=== PATIENT | male | born 1975 | race Caucasian/White ===

== ENCOUNTER → 2018-12-12 13:36 | Outpatient (CLI) | payer OTHER, SELFPAY ==
--- NOTE | 2018-12-12 13:53 | VDLE_ITS ---
Reason For Study: PAIN RIGHT LEFT CFV is compressible, spontaneous, phasic, CFV is compressible, spontaneous, phasic, competent and demonstrates normal competent, and demonstrates normal augmentation. augmentation. Procedure Left SFJ is compressible. Left SFV is dilated Exam performed in department. and partially NONCOMPRESSIBLE, A preliminary report was called and/or faxed Left POP V is dilated and NONCOMPRESSIBLE. to ED. Left T/P TRUNK is dilated and NONCOMPRESSIBLE. Left Gastroc V, Soleus V and SSV are dilated and NONCOMPRESSIBLE. Left PTV and YOUSUF V is dilated and NONCOMPRESSIBLE. Left GSV is compressible. Interpretation Summary Acute deep vein thrombosis is noted in the left femoral vein. Acute deep vein thrombosis is noted in the left popliteal vein. Acute deep vein thrombosis is noted in the left tibio-peroneal trunk. Acute deep vein thrombosis is noted in the left posterior tibial vein. Acute deep vein thrombosis is noted in the left peroneal vein. Acute deep vein thrombosis is noted in the left gastrocnemius vein. Acute deep vein thrombosis is noted in the left soleus vein. The left common femoral vein is patent, compressible, and competent. The left great saphenous vein is patent and compressible. Acute superficial thrombophlebitis is noted in the left small saphenous vein. Ordering Physician: Adina Li Referring Physician: Adina Li Performed By: Lisset Scott, JOSELO, RVT
== END ==
PROVIDERS: Family Provider Family Medicine; PCP Family Medicine; Referring Provider Nurse Practitioner Family; Visit Provider Nurse Practitioner Family
DX: M79.662 Pain in left lower leg (principal)
CPT/HCPCS: 93971

== ENCOUNTER 2018-12-12 15:06 | Emergency (ER) | payer OTHER, SELFPAY ==
[2018-12-12 15:08] VITALS: BP 139/74; PULSE 78; PULSE 79; RESP 18; TEMP 36.8; O2SAT 96; BMI 27.9
--- NOTE | 2018-12-12 15:48 | ED.VISSUMM ---
- ER Visit Summary Date of Service: 12/12/18 Chief Complaint: Left leg DVT History of Present Illness: The patient is a 43 M presenting with left lower extremity DVT found on outpatient ultrasound. Patient states he has been having pain in his left leg for the past 5 weeks. He states he looked on the Internet 2 weeks ago and believed that he had a blood clot. He was able to see his doctor today and was sent for outpatient venous doppler. He denies chest pain or shortness of breath. Denies lightheadedness or syncope. Denies palpitations. Denies recent injury. He denies recent travel or surgeries. No family history or personal history of DVTs that he is aware of. No history of cancer. He states he has also had a cough for several weeks. Denies other complaints. Physical Examination: Vitals are stable. Patient is afebrile. Alert no acute distress. HEENT exam is unremarkable. Neck is supple. Lungs are clear and equal bilaterally. Heart is regular rate and rhythm. Abdomen is soft nontender nondistended. Extremities left calf tenderness. Normal DP/PT pulses. Skin is warm and dry. No focal neurologic deficit. Remainder of exam is unremarkable. Emergency Department Course and Treatment: Outpatient ultrasound shows left SFV dilated and partially noncompressible, left popliteal vein is dilated and noncompressible, left T/P trunk is dilated and noncompressible. left gastroc vein, soleus vein and SFV are dilated and noncompressible. left PTV and YOUSUF V is dilated and noncompressible. Left GSV is compressible. Patient is not tachycardic or hypoxic. He denies chest pain, pleuritic chest pain, shortness of breath. Denies lightheadedness or syncope. He will be started on anticoagulants. He was offered chest x-ray for his cough and declines. His lungs are clear to auscultation bilaterally. BMP unremarkable. Patient was started on Eliquis. Advised to follow-up with primary care physician. Advised return to ED for any worsening complaints. Disposition: Discharge home Impression: Left lower extremity DVT This note was generated with [employer] dictation software. It may contain incorrect words, spelling, and punctuation that were not noted in review of the chart prior to signing ED Disposition - Plan for ED Patient: Instructions: ED DVT Prescriptions: Apixaban [Eliquis] 5 mg PO BID #74 tablet Referrals: Verito Barth [Primary Care Provider] -
[2018-12-12 16:16] LABS: Anion Gap 8 (5-15); BUN 14 mg/dL (7-18); BUN/Creat Ratio 12.7 RATIO (10-20); Calcium,Total 8.6 mg/dL (8.5-10.1); Chloride 107 mmol/L (98-107); EST Glomerular Filtration Rate 77 mL/min (>60); Est Glom Filt Rate - Afr Amer 93 mL/min (>60); Estimated Creatinine Clearance 90.32 ml/min; Glucose 111 mg/dL (74-106); Sodium Level 142 mmol/L (136-145)
--- NOTE | 2018-12-12 16:32 | ED.DEP ---
ED Disposition - Plan for ED Patient: Instructions: ED DVT Prescriptions: Apixaban [Eliquis] 5 mg PO BID #74 tablet Referrals: Mel Fierro,Verito Barreto [Primary Care Provider] -
[2018-12-12] MEDS: APIXABAN 5 MG TABLET 10 MG PO (17:00)
[2018-12-12 17:32] VITALS: RESP 18; O2SAT 99
== END 2018-12-12 17:33 | disposition home or self-care (01) ==
LOC: ED 15:44
PROVIDERS: Emergency Provider Emergency Medicine; Family Provider Family Medicine
DX: I82.402 Acute embolism and thrombosis of unspecified deep veins of left lower extremity (principal); R05 Cough
CPT/HCPCS: 80048; 99283; A4216

== ENCOUNTER → 2019-01-25 11:16 | Outpatient (CLI) | payer OTHER, SELFPAY ==
--- NOTE | 2019-01-25 11:41 | VDLE_ITS ---
Reason For Study: LLE pain RIGHT LEFT CFV is compressible, spontaneous, phasic, GSV is normal. competent and demonstrates normal CFV is compressible, spontaneous, phasic, augmentation. competent, and demonstrates normal Procedure augmentation. Exam performed in department. MID/DISTAL FV, POP V, T/P Trunk, The exam was diagnostic. gastrocnemius V are dilated and A preliminary report was called and/or faxed noncompressible. to Verito Holguin @ 12:15 pm. PTV and PERV are now partially compressible. Interpretation Summary Acute deep vein thrombosis is noted in the left femoral vein. Acute deep vein thrombosis is noted in the left popliteal vein. Acute deep vein thrombosis is noted in the left tibio-peroneal trunk. Acute deep vein thrombosis is noted in the left gastrocnemius vein. Since a prior study on 12/12/2018, mild improvement is noted in the left posterior tibial vein and peroneal vein, which are now partially compressible. The left common femoral vein remains patent, compressible, and competent. The left greater saphenous vein appears patent and compressible segmentally. Ordering Physician: VERITO HOLGUIN Referring Physician: VERITO HOLGUIN FREE Performed By: Farnaz Streeter, JOSELO, RVT
== END ==
PROVIDERS: Family Provider Family Medicine; PCP Family Medicine
DX: M79.662 Pain in left lower leg (principal)
CPT/HCPCS: 93971

== ENCOUNTER → 2019-08-13 13:46 | Outpatient (CLI) | payer OTHER, SELFPAY ==
[2019-03-12 15:28] VITALS: BMI 27.5
--- NOTE | 2019-08-13 14:19 | VDLE_ITS ---
Reason For Study: pain RIGHT LEFT CFV is compressible, spontaneous, phasic, GSV is normal. competent and demonstrates normal CFV is compressible, spontaneous, phasic, augmentation. competent, and demonstrates normal Procedure augmentation. Exam performed in department. PTV is compressible. The exam was diagnostic. LT PerV is compressible. A preliminary report was called and/or faxed FV, POP V, T/P Trunk, and Gastroc V are to [facility]ito [facility]. partially compressible with bright intraluminal echoes consistent with chronic DVT. Interpretation Summary Chronic venous changes are noted in the left femoral vein, popliteal vein, tibio-peroneal trunk, and gastrocnemius vein, which are partially compressible and demonstrate bright intraluminal echogenicity. The left common femoral vein, posterior tibial vein, and peroneal vein are patent and compressible. The left common femoral vein is competent. The left great saphenous vein appears patent and compressible segmentally. Ordering Physician: Verito Barth Performed By: Harjit Leyva RVT
== END ==
DX: M79.662 Pain in left lower leg (principal)
CPT/HCPCS: 93971

== ENCOUNTER → 2019-10-08 13:56 | Outpatient (CLI) | payer OTHER, SELFPAY ==
[2019-09-11 15:19] VITALS: BMI 28.5
[2019-10-08 11:56] VITALS: BMI 29.3
--- NOTE | 2019-10-08 13:59 | VDLE_ITS ---
Reason For Study: Pain Procedure LEFT Exam performed in department. GSV is normal. A preliminary report was called and/or faxed CFV is compressible, spontaneous, phasic, to Fred. Pt sent back to office. competent, and demonstrates normal augmentation. FV and Gastroc V are partially compressible with bright intraluminal echoes consistent with chronic DVT. PopV and T/P Trunk are partially compressible with minimal flow noted. Acute deep vein thrombosis is noted in the left soleus vein. Acute deep vein thrombosis is noted in the left peroneal vein. Acute deep vein thrombosis is noted in the left posterior tibial vein. Interpretation Summary Left great saphenous vein appears patent and compressible segmentally. Acute deep venous thrombosis left popliteal and tibioperoneal trunk and soleus and peroneal and posterior tibial veins. Bright intraluminal echoes consistent with chronic deep venous thrombosis involving the left femoral vein and gastrocnemius vein. Compared to a previous study of August 13, 2019 chronic deep venous thrombosis was identified at that time Ordering Physician: Kellee Ibarra Referring Physician: Adina Restrepo Performed By: Danni Fletcher RVT
== END ==
PROVIDERS: Family Provider Nurse Practitioner Family; PCP Nurse Practitioner Family; Referring Provider Nurse Practitioner Family; Visit Provider Nurse Practitioner Family
DX: M79.605 Pain in left leg (principal)
CPT/HCPCS: 93971

== ENCOUNTER 2019-11-08 18:14 | Emergency (ER) | payer OTHER, SELFPAY ==
[2019-10-08 11:56] VITALS: BMI 29.3
[2019-11-08 18:15] VITALS: BP 127/68; PULSE 86; RESP 16; TEMP 36.3; O2SAT 96; BMI 28.7
--- NOTE | 2019-11-08 18:31 | ED.VIS.GEN ---
History of Present Illness Chief Complaint: Other, Pain/Inj Detail of Chief Complaint: Injury to groin and blood in stool Informant: Patient Onset: Yesterday - Patient noted blood in stool yesterday. He states he did not note any blood today., Days - Patient fell on Monday resulting in abrasion and injury to the right inguinal area. He was seen the following day by his vascular surgeon. Context: Sudden Onset Timing: Intermittent Quality: Blood per rectum and wound right inguinal area Location: Previously documented Current Severity: Mild Maximum Severity: Mild Worsened by: Nothing Relieved by: Nothing Associated Symptoms: No fever or chills or drainage and no orthostatic symptoms Narrative: Patient is a 44-year-old male who was diagnosed December 2018 with DVT. He is on Eliquis. He had a fall on Monday. He sustained an abrasion medial proximal right thigh and laceration in the right inguinal area near his scrotum. He is concerned because it is not closing. He has not noted drainage. He does report bruise and tenderness medial anterior proximal right thigh. The area of abrasion is not warm, indurated and there is no inguinal lymphadenopathy. The laceration is less than 1 cm. There is no erythema, warmth, induration or fluctuance. Unable to express any material from the laceration. Patient states he noted blood yesterday per rectum. He denies nausea or vomiting. He denies black or maroon stool. There is no history of diverticulosis or inflammatory bowel disorder. He denies hemorrhoids. Prior similar symptoms: No Recent Illness/Hospitalization: No - Past Medical History (1) Deep vein thrombosis (DVT) of proximal vein of left lower extremity Status: Chronic Past Medical History - Allergies and Home Meds Allergies/Adverse Reactions: Allergies No Known Allergies Allergy (Verified 11/08/19 18:41) Primary Care Physician: Adina Restrpeo NP-C [Primary Care Provider] - Prior records reviewed: Yes Lives: Alone Smoking Status: Never smoker Alcohol: None Drugs: None Review of Systems General: Denies: Chills, Fever, Malaise, Sweats Respiratory: Denies: Dyspnea, Cough, Sputum Gastrointestinal: Reports: Hematochezia. Denies: Abdominal pain, Nausea, Vomiting, Diarrhea, Constipation, Melena Genitourinary: Denies: Dysuria, Hematuria, Frequency Musculoskeletal: Denies: Myalgias, Arthralgias, Neck pain, Back pain, Swelling, Extremity Pain Skin: Reports: Abrasions, Wounds. Denies: Rash, Abscess Neurological: Denies: Headache, Weakness, Parasthesia Hematologic: Denies: Easy bruising, Easy bleeding Allergy: Denies: Uticaria Physical Exam Vital Signs/Narrative: Vital Signs Temp Pulse Resp BP Pulse Ox 11/08/19 18:15 97.4 F L 86 16 127/68 H 96 Inital Vital Signs reviewed: Yes General: Well nourished, Well developed, No Acute Distress Head: Normocephalic, Atraumatic Eyes: Perrl, EOMI ENT: Moist mucous membranes, No rhinorrhea Neck: Supple, Nontender Cardiovascular: Regular rate, Regular rhythm, No murmurs, Normal S1, Normal S2 Respiratory: No distress, CTA bilaterally, Chest nontender Abdomen: Soft, Nontender, Nondistended, Normal bowel sounds Rectal: - - There is no fissures, fistulas or hemorrhoids noted. Stool is brown. Extremities: No edema, Tenderness - Enters over abraded area with hematoma.. Negative for: Nontender Skin: Normal color, No rash, Trauma - 1 cm laceration without evidence of infection as previously documented Neurological: Alert, Oriented x3, Cranial nerves II-XII grossly intact, Normal Strength, Normal Sensation Psychological: Normal affect, Normal Mood Diagnostic/Tx/Re-eval 11/08/19 18:30 Stool Stool Occult Blood (DAVID) - Final Stool was negative for occult blood - Medical Decision Making History of blood per rectum and the fact the patient is on anticoagulants stool was sent for occult blood testing. There is no evidence of gross blood and there is no black or maroon stool. She was informed the wound does not appear infected and since this occurred several days ago it would have to heal by secondary intention. ED Disposition - Plan for ED Patient: Disposition: Home or Assisted Living Diagnosis: Laceration Instructions: LACERATION, Old - Not Sutured Referrals: Adina Restrepo NP-C [Primary Care Provider] - 1 Week if not improving
== END 2019-11-08 19:45 | disposition home or self-care (01) ==
PROVIDERS: Emergency Provider Emergency Medicine; PCP Nurse Practitioner Family; Referring Provider Nurse Practitioner Family
DX: S31.113A Laceration without foreign body of abdominal wall, right lower quadrant without penetration into peritoneal cavity, initial encounter (principal); S70.311A Abrasion, right thigh, initial encounter; K92.1 Melena; W19.XXXA Unspecified fall, initial encounter; Y93.9 Activity, unspecified; Y92.9 Unspecified place or not applicable; Y99.9 Unspecified external cause status; Z79.01 Long term (current) use of anticoagulants; Z79.899 Other long term (current) drug therapy; Z86.718 Personal history of other venous thrombosis and embolism
CPT/HCPCS: 82274; 99282

== ENCOUNTER 2020-11-12 10:00 | Outpatient (RCR) | payer OTHER, SELFPAY ==
[2020-10-15 10:38] VITALS: BMI 27.9
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
--- NOTE | 2020-11-12 11:47 | HP.PT.NRP ---
DRAKE CROWLEY was seen in my office for initial evaluation on 10/19/20. The following Plan of Care was established for this patient: Initial Frequency: 2-3x /Week Initial Duration: 4-6 Weeks Patient/Client Instruction: Educate patient on: Condition, Plan of Care, Risk Factors, Benefits of Fitness Program For the Purpose of:: To improve self management Therapeutic Exercise to Include: Strength training, Body mechanics, Postural training, Flexibilty training, Neuromotor development, Dynamic Lumbar Stabilization For the Purpose of:: To decrease pain, To improve muscle performance and motor function, To increase tolerance to activity/condition/position, To improve ability of physical actions for home/community/work/leisure TENS: Yes IF ES: Yes Cryotherapy (ice pack, ice massage): Yes Thermo therapy (hot pack): Yes Ultrasound (thermal/non thermal): Yes For the Purpose of:: To decrease pain, To decrease swelling/inflammation, To improve nutrient delivery to tissue This patient was last seen in our office . Pertinent comments regarding their Physical therapy will appear below: At this point I will be discontinuing this patient from physical therapy. I would be happy to see this patient again in the future if found appropriate by the physician. Thank you! Sherice Sotelo, PT, Cert MDT
== END 2020-11-12 19:00 | disposition home or self-care (01) ==
LOC: PT 10:00
PROVIDERS: Referring Provider Chiropractor; Visit Provider Chiropractor
DX: M54.5 Low back pain (principal)
CPT/HCPCS: 97110; 97112; 97162; 97164; 97530

== ENCOUNTER 2020-12-05 16:46 | Emergency (ER) | payer OTHER, SELFPAY ==
[2020-10-15 10:38] VITALS: BMI 27.9
[2020-12-05 16:47] VITALS: BP 130/87; PULSE 89; RESP 18; TEMP 37.1; O2SAT 98; BMI 25.7
[2020-12-05] MEDS: Diphth,Pertuss(Acell),Tet Vac 0.5 ML Vial IM (17:05)
[2020-12-05] MEDS: Lidocaine 1% /Epi 1:100 (20ml) 20 ML Vial INFILT (17:22)
[2020-12-05 17:23] VITALS: BP 132/67; PULSE 75; RESP 16; O2SAT 96
--- NOTE | 2020-12-05 17:33 | ED.DCSUM_ITS ---
History of Present Illness Chief Complaint: Laceration Informant: Patient Narrative: 45-year-old male states he was using a chainsaw and it was running when he dropped it onto his right thigh. He states that it was more of a grazing injury but did cause a laceration. He believes his last tetanus was 10 or 11 years ago. Past Medical History - Allergies and Home Meds Allergies/Adverse Reactions: Allergies No Known Allergies Allergy (Verified 10/15/20 10:36) Primary Care Physician: [facility],Verito Barreto [Primary Care Provider] - Past Medical History: None Surgical History: noncontributory Smoking Status: Never smoker Drugs: None Review of Systems General: Denies: Chills, Fever, Sweats Eyes: Denies: Visual changes - bilaterally, Diplopia ENT: Denies: Rhinorrhea, Sore throat Cardiovascular: Denies: Chest pain, Palpitations Respiratory: Denies: Dyspnea, Cough, Dyspnea on exertion Gastrointestinal: Denies: Abdominal pain, Nausea, Vomiting, Diarrhea, Melena, Hematochezia Genitourinary: Denies: Dysuria, Hematuria, Frequency Musculoskeletal: Denies: Back pain, Extremity Pain Skin: Reports: Wounds. Denies: Rash Neurological: Denies: Headache, Weakness, Numbness Physical Exam Vital Signs/Narrative: Vital Signs Temp Pulse Resp BP Pulse Ox 12/05/20 17:23 75 16 132/67 H 96 12/05/20 16:47 98.7 F 89 18 130/87 H 98 Inital Vital Signs reviewed: Yes General: Well nourished, Well developed, No Acute Distress Head: Normocephalic, Atraumatic Eyes: Perrl, EOMI ENT: Moist mucous membranes, No rhinorrhea Neck: Supple, Nontender Cardiovascular: Regular rate, Regular rhythm, No murmurs Respiratory: No distress, CTA bilaterally, Chest nontender Abdomen: Soft, Nontender, Nondistended, Normal bowel sounds Back: Nontender, Normal Inspection Extremities: Nontender, No edema Skin: Normal color, No rash, Trauma - Is an 8 cm linear laceration over the anterior aspect of the mid thigh. Extends down to the fascia but not below. There is no active bleeding. There are some pieces of wood noted. The wound edges are macerated. Neurological: Alert, Oriented x3, Cranial nerves II-XII grossly intact, Normal Strength, Normal Sensation Psychological: Normal affect, Normal Mood Diagnostic/Tx/Re-eval - Medical Decision Making Wounds were locally anesthetized using 1% lidocaine with epinephrine. Approximately 5 pieces of a woody substance was removed. I cannot visualize any more. 500 cc of sterile saline was used to irrigate the wound. Washed with Shur-Clens. It was closed using a total of 11 simple erupted 3-0 Ethilon sutures. There was some mild wound edge revisions that needed to occur. His tetanus was updated with Adacel. Wound care discussed with patient. Stitches will need to be removed in 10 days. Return if worsening or concerns. ED Disposition - Plan for ED Patient: Disposition: Home or Assisted Living Diagnosis: Laceration of right thigh Instructions: ED Laceration: All Closures Prescriptions: Cephalexin [Keflex] 500 mg PO Q6 #20 cap Transmission Status: Pending to [id number] Referrals: [facility],Verito Barreto [Primary Care Provider] - 10 Day for suture removal
== END 2020-12-05 17:44 | disposition home or self-care (01) ==
LOC: ED 17:42
PROVIDERS: Emergency Provider Emergency Medicine
DX: S71.121A Laceration with foreign body, right thigh, initial encounter (principal); Z23 Encounter for immunization; W29.3XXA Contact with powered garden and outdoor hand tools and machinery, initial encounter; Y93.9 Activity, unspecified; Y92.9 Unspecified place or not applicable; Y99.9 Unspecified external cause status; Z79.01 Long term (current) use of anticoagulants; Z79.899 Other long term (current) drug therapy
CPT/HCPCS: 12034; 90471; 90715; 99284

== ENCOUNTER → 2021-02-01 10:02 | Outpatient (CLI) | payer OTHER, SELFPAY ==
[2021-02-01 11:53] LABS: Absolute Lymphocyte Count 1.75 X10^3/uL (0.83-4.51); Absolute Neutrophil Count 2.2 X10^3/uL (2.0-7.7); Basophil# 0.02 X10^3/uL; Basophil% 0.4 % (0-1); Eosinophil# 0.06 X10^3/uL; Eosinophils% 1.3 % (0-5); Hematocrit 46.5 % (40-54); Lymphocyte # 1.75 X10^3/ul (0.83-4.51); Lymphocyte % 38.8 % (19-41); Mean Corp Hgb Conc 34.4 g/dL (32-36); Mean Corpuscular Hgb 31.4 pg (27.0-32.0); Mean Corpuscular Volume 91.2 fL (80-94); Mean Platelet Vol. 11.7 fl (6.2-12.0); Monocyte# 0.48 X10^3/uL; Monocyte% 10.6 % (0-10); NRBC Flagged by Analyzer 0 % (0-5); Neutrophil # 2.19 X10^3/uL (2.7-7.7); Neutrophil % 48.7 % (47-70); Platelet Count 167 K/mm3 (150-450); RBC Distribution Width CV 12.6 % (11.6-14.6); RBC Distribution Width SD 42.2 fl (35.1-43.9); White Blood Count 4.5 K/mm3 (4.4-11.0)
[2021-02-01 12:18] LABS: ALB/GLOB Ratio 1.1 RATIO (0.9-2.4); AST(SGOT) 22 U/L (15-37); Alanine Aminotransfer ALT/SGPT 39 U/L (16-61); Alkaline Phosphatase 63 U/L (45-117); Anion Gap 6 (5-15); BUN 11 mg/dL (7-18); Calcium,Total 9.3 mg/dL (8.5-10.1); Chloride 102 mmol/L (98-107); Cholesterol 230 mg/dL (200); EST Glomerular Filtration Rate 76 mL/min (>60); Est Glom Filt Rate - Afr Amer 92 mL/min (>60); Globulin 3.6 g/dL (2.2-4.2); Glucose 81 mg/dL (74-106); High Density Lipoprotein 40 mg/dL; Potassium 3.8 mmol/L (3.5-5.1); Protein, Total 7.6 g/dL (6.4-8.2); Sodium Level 139 mmol/L (136-145); Triglycerides 130 mg/dL; Very Low Density Lipoprotein 26 mg/dL (5-40)
== END ==
DX: I82.402 Acute embolism and thrombosis of unspecified deep veins of left lower extremity (principal)
CPT/HCPCS: 36415; 80053; 80061; 85025

== ENCOUNTER → 2021-06-17 10:02 | Outpatient (CLI) | payer OTHER, SELFPAY ==
--- NOTE | 2021-06-17 10:04 | VDLE_ITS ---
Reason For Study: Hx DVT Procedure LEFT This is a venous duplex using B-mode, color GSV is normal. flow and spectral Doppler. CFV is compressible, spontaneous, phasic, Exam performed in department. competent, and demonstrates normal The exam was abbreviated due to the COVID 19 augmentation. protocol. FV, POP V, T/P Trunk, and Gastroc V are The exam was diagnostic. partially compressible with bright A preliminary report was called and/or faxed intraluminal echoes consistent with chronic to [facility] at [facility]. DVT. Soleus V is compressible. PTV is compressible. LT PerV is compressible. VL/Venous Duplex US, Unilateral Interpretation Summary Chronic deep venous thrombosis left femoral, popliteal, tibioperoneal trunk, ga strocnemius veins. Patent and compressible left great saphenous vein Abbreviated COVID-19 protocol utilized Improvement noted from the previous examination of October 08, 2019 Ordering Physician: Isaura Pan Performed By: Harjit Leyva RVT
[2021-06-17 11:48] LABS: T4 Free Direct 0.89 ng/dL (0.76-1.46); Thyroid Stim Hormone (TSH) 0.91 uIU/mL (0.358-3.74)
== END ==
PROVIDERS: Referring Provider Nurse Practitioner Adult Health; Visit Provider Nurse Practitioner Adult Health
DX: I82.512 Chronic embolism and thrombosis of left femoral vein (principal); I82.532 Chronic embolism and thrombosis of left popliteal vein; I82.542 Chronic embolism and thrombosis of left tibial vein; I82.552 Chronic embolism and thrombosis of left peroneal vein; I82.562 Chronic embolism and thrombosis of left calf muscular vein; F33.1 Major depressive disorder, recurrent, moderate
CPT/HCPCS: 36415; 84439; 84443; 93971

== ENCOUNTER → 2022-10-21 | Outpatient (CLI) | payer OTHER, SELFPAY ==
[2022-10-27 11:09] LABS: Testosterone, Free 6.75 ng/dL (5.00-21.00)
[2022-10-28 20:32] LABS: Testosterone, % Free 1.47 % (1.50-4.20); Testosterone, Total 459 ng/dL (264-916)
== END | disposition home or self-care (01) ==
LOC: LAB 12:14
DX: N52.8 Other male erectile dysfunction (principal)
CPT/HCPCS: 36415; 84402; 84403

== ENCOUNTER 2023-09-09 17:15 | Emergency (ER) | payer OTHER, SELFPAY ==
[2023-09-09 17:16] VITALS: BP 158/102; PULSE 102; RESP 14; TEMP 36.7; O2SAT 97; BMI 29.7
--- NOTE | 2023-09-09 17:42 | RAD_ITS ---
INDICATION: injury EXAMINATION/TECHNIQUE: X-RAY - RIGHT XR Foot Min 3 Views 3 VIEWS COMPARISON: FINDINGS: Acute, nondisplaced fractures of the fourth and fifth metatarsal shafts. No angulation. Joint spaces are well-maintained. Hallux valgus. Mild bunion. Mild soft tissue swelling medial to the first metatarsal. No radiopaque foreign body or soft tissue gas. RAD/Foot min 3 Views IMPRESSION: Acute fractures of the fourth and fifth metatarsals. Electronically Signed: Michelle Adkins MD at 18:30 EST Reading Location ID and State: [id number] / Tel , Service support ,
--- NOTE | 2023-09-09 17:57 | EDS_ITS ---
HPI History of Present Illness Chief Complaint: Lower Extremity Injury Informant: patient Onset/Context/Timing Onset: Today Narrative Narrative: Patient presents secondary to left foot injury. 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 He states he rode the ladder down until the top cleared the roof line and then fell pretty hard. His foot got caught in the ladder and he thinks the wrong came down across his foot. He complains of pain across the fourth and fifth metatarsals. He denies knee or hip pain. He has no back pain. Patient presents about 5 hours after injury. He has already taken Tylenol and iced his injury. [facility] Medical History Back pain DVT (deep venous thrombosis) Left wrist sprain Right tennis elbow Sleep apnea Home Medications modafinil 100 mg tablet 200 mg PO DAILY 12/12/18 [History Last Taken Unknown] omeprazole 40 mg capsule,delayed release 40 mg PO DAILY #30 caps 04/24/23 [Rx Last Taken Unknown] Allergy/AdvReac Type Severity Reaction Status Date / Time No Known Allergies Allergy Verified 09/09/23 17:16 Family History Father Bone cancer Grandmother Diabetes Hypertension Uncle Multiple myeloma Surgical History No history of previous surgery Social History Smoking Status: Never smoker ROS ROS ED Constitutional Constitutional ED: Denies chills or fever(s) Eyes Eyes: Denies change in vision ENT ENT ED: Denies rhinorrhea or sore throat Cardiovascular Cardiovascular: Denies chest pain Respiratory/Chest Respiratory/Chest: Denies cough or dyspnea Gastrointestinal Gastrointestinal: Denies abdominal pain, nausea or vomiting Musculoskeletal Musculoskeletal: Reports extremity pain; Denies back pain Integumentary Denies Abrasions or rash Neurologic Neurologic: Denies headache(s), paresthesias or weakness Allergic/Immunologic Allergic/Immunologic ED: Denies lip swelling or urticaria EXAM Physical Exam Const Vital Signs: 09/09/23 17:16 Temperature 98.0 F Temperature Source Temporal Pulse Rate 102 H Respiratory Rate 14 Blood Pressure 158/102 H Blood Pressure Mean 120 Pulse Ox 97 Oxygen Delivery Method Room Air Positive well nourished and well developed General Appearance ED: well developed HEENT Reports moist mucous membranes Eyes EOMs intact bilaterally Neck no lymphadenopathy Chest Wall inspection of chest normal and palpation of chest normal Resp normal respiratory effort and clear to auscultation bilaterally Cardio regular rate and regular rhythm GI non-tender Palpation: soft Back/Spine no CVA tenderness Extremity Extremity Narrative: Extremity: Tenderness to palpation and mild edema across the midfoot. No open wounds. Able to wiggle toes. Good cap refill and sensation. No tenderness at the ankle or knee itself. Neuro oriented x3 and no sensory deficits noted Skin no rashes or lesions noted MDM MDM MDM Narrative Medical decision making narrative: Right foot x-rays of been obtained by nursing protocol. Per my interpretation patient has fractures of the fourth and fifth metatarsals. X-rays discussed with Dr. Tinsley, on-call podiatry. He did recommend a splint and nonweightbearing. Due to the angulation he states wound would likely heal better with surgical fixation. If fracture is not surgically fixed at this time it may require surgery down the road as further complications may arise. This was all discussed with the patient. Ortho-Glass splint is placed posteriorly on the foot. He has crutches at home that he will use. He will remain nonweightbearing on thafoot and follow-up with Dr. Tinsley this week for repeat imaging and further discussion of potential surgery vs. nonsurgical healing. Radiography Diagnostic Testing: Clinical Impression(s) from Imaging Studies Foot X-Ray 09/09/23 17:42 IMPRESSION: Acute fractures of the fourth and fifth metatarsals. Electronically Signed: Michelle Adknis MD at 18:30 EST Reading Location ID and State: [id number] / Tel , Service support , Procedures Lower Extremity Splints Lower Extremity Splint: Orthoglass Splint Fabrication: Fabricated Location: Right Discharge Plan Triage Chief Complaint: Lower Extremity Injury ED Provider: Melissa Person Dx/Rx/DC Orders Clinical Impression: Fracture of foot Instructions: ED Fracture, Foot Prescriptions: No Action omeprazole 40 mg capsule,delayed release(DR/EC) 40 mg PO DAILY Qty: 30 0RF modafinil 100 MG tablet 200 mg PO DAILY Rx Instructions: most days only takes 200mg [facility]errals: Jamey Tinsley DPM [Med Staff - Active Staff] - 3-5 Days [facility],Verito Barreto [Primary Care Provider] - Disposition Disposition: Home, Self Care
== END 2023-09-09 18:57 | disposition home or self-care (01) ==
LOC: ED 18:50
PROVIDERS: Emergency Provider Emergency Medicine; Visit Provider Emergency Medicine
DX: S92.344A Nondisplaced fracture of fourth metatarsal bone, right foot, initial encounter for closed fracture (principal); S92.354A Nondisplaced fracture of fifth metatarsal bone, right foot, initial encounter for closed fracture; W11.XXXA Fall on and from ladder, initial encounter
CPT/HCPCS: 29515; 73630; 99282

== ENCOUNTER 2023-10-13 09:50 | Day surgery (SDC) | payer OTHER, SELFPAY ==
[2023-10-13 10:12] VITALS: BP 123/93; PULSE 100; RESP 18; TEMP 36.4; O2SAT 99; BMI 27.6
[2023-10-13] MEDS: Lactated Ringers 1,000 ML 15 ML IV (10:21)
--- NOTE | 2023-10-13 10:22 | HP.PCM_ITS ---
History and Physical Date of Admission: 10/13/23 Intake Vital Signs 04/24/2312:23 09/09/2317:16 09/18/2313:39 Height 6 ft 6 ft BP 117/81 H Blood Pressure Location Rt brachial Position Sitting Respiration 17 Pulse 76 Pulse Source Monitor Pulse Oximetry (%) 97 Oxygen Delivery Method room air Intake Visit Reasons: CHANGE IN BOWELS Chief Complaint: change in bowels/gerd Is patient in pain?: No Allergies No Known Allergies Allergy (Verified 09/18/23 13:40) Medications modafinil 100 mg tablet (Provigil) 100 mg PO DAILY 09/18/23 [History Confirmed 09/18/23] omeprazole 40 mg capsule,delayed release 40 mg PO DAILY #30 caps 09/18/23 [Rx Confirmed 09/18/23] PFSH Medical History Back pain DVT (deep venous thrombosis) Left wrist sprain Right tennis elbow Sleep apnea Surgical History No history of previous surgery Family History Father Bone cancerGrandmother Diabetes HypertensionUncle Multiple myeloma Social History Smoking Status: Never smoker HPI HPI HPI: Patient is a 48-year-old male here with diarrhea. Patient has been having diarrhea for several months. He reports that it is watery and sometimes he only has water come out. He also reports epigastric pain. He thinks he has an ulcer. ROS General General: No weight change, appetite, fatigue, colon cancer, breast cancer or weakness HEENT HEENT: No difficulty swallowing, eye injury, eye surgery, swollen glands or hoarseness Endo Endocrine: No thyroid disease, diabetes mellitus, thyroid cancer, Hair loss, heat intolerance or cold intolerance Skin Skin: No rash or changing moles Musc Musculoskeletal: Yes back problems; No arthritis, rheumatoid arthritis, gout or joint pain Cardio Cardiovascular: No murmur, pacemaker, heart disease, atrial fibrillation, high blood pressure, heart attack, heart stent, palpitations, shortness of breat with exertion or chest pain Psych Psychiatric: No depression, anxiety or hearing voices Resp Respiratory: No shortness of breath, No sleep apnea, No cough, No COPD, No asthma, No emphysema and No wheezing Gastro Gastrointestinal: Yes abdominal pain, No nausea or vomiting, Yes diarrhea, No constipation, No blood in stool, Yes acid reflux, No hemorrhoids, Yes ulcers, No gallbladder problem and No black,tarry stools Luis F Hematologic: No blood thinners, No blood disorders, No bleeding, No anemia and Yes blood clots Additional Details: H/O blood clot in left leg. Neuro Neurologic: No system reviewed and no additional complaints, except as documented, No as per HPI, No abnormal gait, No abnormal hearing, No abnormal movements, No abnormal speech, No behavioral changes, No burning sensations, No confusion, No convulsions, No disequilibrium, No dizziness, No localized wea kness, No frequent falls, No headache(s), No lack of coordination, No loss of vision, No memory loss, No numbness, No other visual disturbances, No radicular pain, No restless legs, No sensory deficit, No syncope, No tingling, No tremor(s), No weakness and No other Exam Const General: cooperative Orientation: alert and oriented x3 HENMT Head: normal to inspection Neck Neck: normal visual inspection and full ROM Chest Chest palpation & inspection: normal inspection of the chest Resp Effort & Inspection: normal respiratory effort Auscultation: clear to auscultation bilaterally Cardio Rate: regular rate Rhythm: regular rhythm GI Inspection: non-distended Palpation: soft and nontender Skin General: no rashes or lesions noted Neuro General: patient alert and patient oriented x3 Extrem General: full ROM Psych Appearance: grossly normal Mental Status: mental status grossly normal Assessment and Plan Assessment and Plan (1) GERD (gastroesophageal reflux disease): Status: Acute Qualifiers: Esophagitis presence: esophagitis presence not specified Qualified Code(s): K21.9 - Gastro-esophageal reflux disease without esophagitis (2) Diarrhea: Status: Acute Qualifiers: Diarrhea type: unspecified type Qualified Code(s): R19.7 - Diarrhea, unspecified Orders: Orders Colonoscopy Today EGD Today Medications: Refilled omeprazole 40 mg PO DAILY 30 caps 2RF Plan The patient has chronic diarrhea and epigastric pain. I will prescribe him omeprazole and plan for EGD and colonoscopy. I explained endoscopy in detail to the patient. I explained the risks including but not limited to stroke or heart attack with anesthesia, perforation of the GI tract, bleeding, infection. I explained that any of these could necessitate further emergency surgery. The patient understands and all questions were answered sufficiently. The patient wishes to proceed with procedure. Andrez Roman MD Pager: [facility] [address] [place] [address], [address] [place] [phone] Office: I have examined the patient and the H&P has been reviewed. There are no clinical changes since date of exam.
--- OUTSIDE RECORDS SUMMARY | 2023-10-13 10:43 | XMS RPT_ITS | CCD ---
Author Name Unknown Address [address] [place] [id number] Organization [facility] Results Test Name Value Interpretation Reference Range Facil ity Summary Purpose Family History No Family History Records Found Advance Directives No Advanced Directives Records Found Additional Source Comments (unrecognized sect ion and content) No Status Records Found INFORMATION SOURCE (unrecogn ized section and content) FOR RECORDS PERTAINING TO PATIENTS WHO ARE OR HAVE BEEN ENROLLED IN A CHEMICAL DEPENDENCY/SUBSTANCEABUSE PROGRAM, SOME INFORMATION MAY BE OMITTED. This clinical summary was aggregated from multiple sources. Caution should be exercised in using it in the provision of clinical care. This summary normalizes information from multiple sources, and as a consequence, information in this document may materially change the coding, format and clinical context of patient data. In addition, data may be omitted in some cases. CLINICAL DECISIONS SHOULD BE BASED ON THE PRIMARY CLINICAL RECORDS. [employer] provides no warranty or guarantee of the accuracy or completeness of information in this document.
--- NOTE | 2023-10-13 10:45 | COLBX_PTH ---
PATHOLOGY RESULTS PATIENT: DRAKE CROWLEY LOC: EN U#:[id number] AGE/SX: 48/M ROOM: RE10/13/[address]: Dr. Andrez Roman MD : 1975 BED: DIS: 10/13/2023 SPEC #: [id number] RECD: 10/13/23 12:32 STATUS: ANA M LAZARUS #: [id number] SILVIA: 10/13/23 10:[address]: Andrez Roman DEPT: SURGICAL PATHOLOGY RECD BY: Radha Garcia ENTERED: 10/13/23 12:33 SP TYPE: COLON BX OTHR DR: [facility] Tissues: Esophageal mucous membrane COLON BIOPSY Rectum, NOS Procedures: Special Stain Group II Surgery Specimen Level IV Alcian Blue/PAS (control) HEADER OPERATION: Colonoscopy, EGD with biopsies and polypectomy PRE-OP DIAGNOSIS: GERD, diarrhea TISSUE SUBMITTED: A - Gastroesophageal junction biopsy, B - Random colon biopsy, C - Rectal polyp MICROSCOPIC DIAGNOSIS A. Gastroesophageal junction, biopsy: Fragments of gastroesophageal mucosa with chronic inflammation. Intestinal metaplasia (goblet cell metaplasia) not identified. See comment. B. Colon, random biopsy: Fragments of colonic mucosa, no pathologic diagnosis. C. Rectal polyp, polypectomy: Tubular adenoma. SJ:rg 10/16/2023 COMMENT A. Alcian blue/PAS stain with matched control is used in the evaluation of the specimen. MICROSCOPIC DESCRIPTION Slides are reviewed. GROSS DESCRIPTION A - Received in fixative is one container labeled with the patient's name and designated GE junction biopsy. The specimen consists of two irregular fragments of light mix soft tissue that in aggregate measure 0.8 x 0.5 x 0.1 cm. The specimen is totally submitted in one cassette. B - Received in fixative is one container labeled with the patient's name and designated random colon biopsy. The specimen consists of multiple irregular fragments of light mix soft tissue that in aggregate measure 2.0 x 1.0 x 0.1 cm. The specimen is totally submitted in one cassette. C - Received in fixative is one container labeled with the patient's name and designated rectal polyp. The specimen consists of one irregular fragment of light mix soft tissue that measures 0.7 x 0.4 x 0.1 cm. The specimen is totally submitted in one cassette. / IBETH:diamante 10/13/2023 TC:1 CPT: 07663 x3, 80728
--- NOTE | 2023-10-13 11:03 | OP.CCLET_ITS ---
10/13/2023 Verito Barreto [facility] Re : Upper GI endoscopy procedure for Boo Tam [facility] This procedure was performed on Friday, October 13, 2023. My impressions and recommendations are as follows: Impressions : - Non-severe reflux esophagitis with no bleeding. Biopsied. - Normal stomach. - Normal examined duodenum. Recommendations : - Discharge patient to home. - Resume previous diet. - Continue present medications. - Await pathology results. My findings are described in the full procedure note, which is enclosed. If I can be of further assistance, please feel free to contact me at Doctor phone number(s): , Work: . Sincerely, Andrez Roman MD 10/13/2023 11:02:44 AM This report has been signed electronically.
--- NOTE | 2023-10-13 11:03 | OP.EGD_ITS ---
Patient Name: Boo Singleton Procedure Date: 10/13/2023 10:26 AM Date of : 1975 Age: 48 Procedure: Upper GI endoscopy Indications: Epigastric abdominal pain Providers: Andrez Roman MD Referring MD: Andrez Roman MD Medicines: Monitored Anesthesia Care Patient Profile: This is a 48 year old male. Refer to note in patient chart for documentation of history and physical. Complications: No immediate complications. Estimated blood loss: Minimal. Procedure: Pre-Anesthesia Assessment: - Prior to the procedure, a History and Physical was performed, and patient medications and allergies were reviewed. The patient's tolerance of previous anesthesia was also reviewed. The risks and benefits of the procedure and the sedation options and risks were discussed with the patient. All questions were answered, and informed consent was obtained. Prior Anticoagulants: The patient has taken no anticoagulant or antiplatelet agents. After reviewing the risks and benefits, the patient was deemed in satisfactory condition to undergo the procedure. After obtaining informed consent, the endoscope was passed under direct vision. Throughout the procedure, the patient's blood pressure, pulse, and oxygen saturations were monitored continuously. The gastroscope was introduced through the mouth, and advanced to the fourth part of duodenum. The upper GI endoscopy was accomplished without difficulty. The patient tolerated the procedure well. Scope In: 10:40:57 AM Scope Out: 10:43:39 AM Total Procedure Duration Time 0 hours 2 minutes 42 seconds Findings: Non-severe esophagitis with no bleeding was found at the gastroesophageal junction. Biopsies were taken with a cold forceps for histology. The stomach was normal. The examined duodenum was normal. Impression: - Non-severe reflux esophagitis with no bleeding. Biopsied. - Normal stomach. - Normal examined duodenum. Recommendation: - Discharge patient to home. - Resume previous diet. - Continue present medications. - Await pathology results. Procedure Code(s): --- Professional --- 64470, Esophagogastroduodenoscopy, flexible, transoral; with biopsy, single or multiple Diagnosis Code(s): --- Professional --- K21.00, Gastro-esophageal reflux disease with esophagitis, without bleeding R10.13, Epigastric pain CPT copyright 2021 [employer]. All rights reserved. The codes documented in this report are preliminary and upon senior javascript developer review may be revised to meet current compliance requirements. Andrez Roman MD 10/13/2023 11:02:44 AM This report has been signed electronically. Number of Addenda: 0 Note Initiated On: 10/13/2023 10:26 AM
[2023-10-13 11:05] VITALS: BP 103/70; BP 123/93; PULSE 74; RESP 14; TEMP 36.1; O2SAT 93
--- NOTE | 2023-10-13 11:05 | OP.CCLET_ITS ---
10/13/2023 Verito Barreto [facility] Re : [facility] This procedure was performed on Friday, October 13, 2023. My impressions and recommendations are as follows: Impressions : - One small polyp in the rectum, removed with a hot snare. Resected and retrieved. - Biopsies were taken with a cold forceps from the entire colon for evaluation of microscopic colitis. Recommendations : - Discharge patient to home. - Resume previous diet. - Continue present medications. - Await pathology results. - Repeat colonoscopy in 5 years for surveillance based on pathology results. My findings are described in the full procedure note, which is enclosed. If I can be of further assistance, please feel free to contact me at Doctor phone number(s): , Work: . Sincerely, Andrez Roman MD 10/13/2023 11:04:51 AM This report has been signed electronically.
--- NOTE | 2023-10-13 11:05 | OP.COLON_ITS ---
Patient Name: Boo Singleton Procedure Date: 10/13/2023 10:43 AM Date of : 1975 Age: 48 Procedure: Colonoscopy Indications: Chronic diarrhea Providers: Andrez Roman MD Referring MD: Andrez Roman MD Medicines: Monitored Anesthesia Care Patient Profile: This is a 48 year old male. Refer to note in patient chart for documentation of history and physical. Last Colonoscopy: none. The patient's first colonoscopy is today. Complications: No immediate complications. Estimated blood loss: Minimal. Procedure: Pre-Anesthesia Assessment: - Prior to the procedure, a History and Physical was performed, and patient medications and allergies were reviewed. The patient's tolerance of previous anesthesia was also reviewed. The risks and benefits of the procedure and the sedation options and risks were discussed with the patient. All questions were answered, and informed consent was obtained. Prior Anticoagulants: The patient has taken no anticoagulant or antiplatelet agents. After reviewing the risks and benefits, the patient was deemed in satisfactory condition to undergo the procedure. After I obtained informed consent, the scope was passed under direct vision. Throughout the procedure, the patient's blood pressure, pulse, and oxygen saturations were monitored continuously. The colonoscope was introduced through the anus and advanced to the cecum, identified by appendiceal orifice and ileocecal valve. The colonoscopy was performed without difficulty. The patient tolerated the procedure well. The quality of the bowel preparation was good. The ileocecal valve, appendiceal orifice, and rectum were photographed. Scope In: 10:47:13 AM Scope Withdrawal Time 0 hours 8 minutes 23 seconds Scope Out: 10:59:11 AM Total Procedure Duration Time 0 hours 11 minutes 58 seconds Findings: A small polyp was found in the rectum. The polyp was removed with a hot snare. Resection and retrieval were complete. Biopsies for histology were taken with a cold forceps from the entire colon for evaluation of microscopic colitis. Impression: - One small polyp in the rectum, removed with a hot snare. Resected and retrieved. - Biopsies were taken with a cold forceps from the entire colon for evaluation of microscopic colitis. Recommendation: - Discharge patient to home. - Resume previous diet. - Continue present medications. - Await pathology results. - Repeat colonoscopy in 5 years for surveillance based on pathology results. Procedure Code(s): --- Professional --- 87843, Colonoscopy, flexible; with removal of tumor(s), polyp(s), or other lesion(s) by snare technique [id number], 59, Colonoscopy, flexible; with biopsy, single or multiple Diagnosis Code(s): --- Professional --- D12.8, Benign neoplasm of rectum K52.9, Noninfective gastroenteritis and colitis, unspecified CPT copyright 2021 [employer]. All rights reserved. The codes documented in this report are preliminary and upon contact worker review may be revised to meet current compliance requirements. Andrez Roman MD 10/13/2023 11:04:51 AM This report has been signed electronically. Number of Addenda: 0 Note Initiated On: 10/13/2023 10:43 AM
[2023-10-13 11:10] VITALS: BP 102/70; BP 122/83; BP 123/93; PULSE 71; PULSE 77; RESP 18; O2SAT 93; O2SAT 95
[2023-10-13 11:19] VITALS: BP 123/93; BP 124/85; PULSE 73; RESP 12; TEMP 36.6; O2SAT 94
[2023-10-13 11:24] VITALS: BP 123/93
== END 2023-10-13 12:07 | disposition home or self-care (01) ==
LOC: EN 09:52 → AC 09:54
PROVIDERS: Visit Provider Surgery
PROC: 0DJD8ZZ Inspection of Lower Intestinal Tract, Via Natural or Artificial Opening Endoscopic (ICD-10-PCS; CPT 45378; principal; 2023-10-13 10:40)
DX: D12.8 Benign neoplasm of rectum (principal); K52.9 Noninfective gastroenteritis and colitis, unspecified; K21.00 Gastro-esophageal reflux disease with esophagitis, without bleeding; K29.70 Gastritis, unspecified, without bleeding; Z79.899 Other long term (current) drug therapy
CPT/HCPCS: 43239; 45380; 45385; 88305; 88313; J7120; J2405

== ENCOUNTER → 2024-10-17 | Outpatient (CLI) | payer OTHER, SELFPAY ==
[2024-10-17 13:01] LABS: Absolute Lymphocyte Count 1.36 X10^3/uL (0.83-4.51); Absolute Neutrophil Count 2.4 X10^3/uL (2.0-7.7); Basophil# 0.05 X10^3/uL; Basophil% 1.2 % (0-1); Eosinophil# 0.11 X10^3/uL; Eosinophils% 2.6 % (0-5); Hematocrit 47.2 % (40-54); Hemoglobin 16.6 g/dL (13.0-16.5); Lymphocyte # 1.36 X10^3/ul (0.83-4.51); Mean Corp Hgb Conc 35.2 g/dL (32-36); Mean Corpuscular Hgb 32.4 pg (27.0-32.0); Mean Platelet Vol. 11.3 fl (6.2-12.0); Monocyte# 0.36 X10^3/uL; Monocyte% 8.5 % (0-10); NRBC Flagged by Analyzer 0 % (0-5); Neutrophil # 2.36 X10^3/uL (2.7-7.7); Neutrophil % 55.5 % (47-70); Platelet Count 154 K/mm3 (150-450); RBC Distribution Width CV 12.5 % (11.6-14.6); RBC Distribution Width SD 42.5 fl (35.1-43.9); Red Blood Count 5.13 M/mm3 (4.6-6.2); White Blood Count 4.3 K/mm3 (4.4-11.0)
[2024-10-17 13:20] LABS: Vitamin B12 378 pg/mL (211-911); Vitamin D,25 Hydroxy 24.3 ng/mL
[2024-10-17 13:26] LABS: AST(SGOT) 31 U/L (15-37); Alanine Aminotransfer ALT/SGPT 69 U/L (16-61); Albumin, Serum 3.7 g/dL (3.2-5.0); Alkaline Phosphatase 66 U/L (45-117); Anion Gap 8 (5-15); BUN 12 mg/dL (7-18); BUN/Creat Ratio 10.7 RATIO (10-20); Chloride 106 mmol/L (98-107); Cholesterol 223 mg/dL (200); Creatinine, Serum 1.12 mg/dL (0.70-1.30); EST Glomerular Filtration Rate 73 mL/min (>60); Est Glom Filt Rate - Afr Amer 89 mL/min (>60); Globulin 3.6 g/dL (2.2-4.2); Glucose 153 mg/dL (74-106); High Density Lipoprotein 34 mg/dL; PSA,Total - Annual Screen 0.62 ng/mL (0.00-4.00); Potassium 3.8 mmol/L (3.5-5.1); Protein, Total 7.3 g/dL (6.4-8.2); Sodium Level 139 mmol/L (136-145); Triglycerides 226 mg/dL; Very Low Density Lipoprotein 45 mg/dL (5-40)
[2024-10-17 14:29] LABS: Hemoglobin A1c 5.4 % (3.8-5.6)
== END | disposition home or self-care (01) ==
LOC: VSLAB 08:39
PROVIDERS: PCP Nurse Practitioner Family; Visit Provider Nurse Practitioner Family
DX: Z00.00 Encounter for general adult medical examination without abnormal findings (principal); Z12.5 Encounter for screening for malignant neoplasm of prostate; E56.9 Vitamin deficiency, unspecified
CPT/HCPCS: 36415; 80053; 80061; 82306; 82607; 83036; 84153; 84443; 85025; G0103

== ENCOUNTER → 2024-11-19 | Outpatient (CLI) | payer OTHER, SELFPAY | END | disposition home or self-care (01) | LOC: LABSPEC 16:58 | PROVIDERS: PCP Nurse Practitioner Family; Visit Provider Physician Assistant | DX: R21 Rash and other nonspecific skin eruption (principal) | CPT/HCPCS: 87070; 87075; 87205 ==